=== PATIENT | female | born 1985 | race African-American/Black ===

== ENCOUNTER 2025-06-12 21:22 | Emergency (ER) | payer MEDICAID ==
[~2025-06-12] VITALS: Ht 152.4 cm; Wt 75.0 kg
[2025-06-12 21:49] VITALS: O2SAT 100
[2025-06-13] MEDS: KETOROLAC 15MG/ML VIAL IM ONE (01:53)
[2025-06-13] MEDS: ACETAMINOPHEN 650MG/20.3ML UDC PO ONE (01:53)
[2025-06-13] MEDS ORDERED: GUAI-450 MT (02:53)
[2025-06-13 03:15] VITALS: BP 104/61; PULSE 65; RESP 18; TEMP 36.8; O2SAT 100
[2025-06-13] MEDS ORDERED: AMOX500T2 MT (05:42)
== END 2025-06-13 03:15 | disposition home or self-care (01) ==
LOC: ER 21:22
DX: J02.0 Streptococcal pharyngitis (principal); B97.89 Other viral agents as the cause of diseases classified elsewhere
CPT/HCPCS: 99283; 81025; 87430; 96372; J1885

== ENCOUNTER 2025-07-19 07:46 | Emergency (ER) | payer MEDICAID ==
[~2025-07-19] VITALS: Ht 152.4 cm; Wt 76.0 kg
[~2025-07-19 07:46] MED LIST: AMOX500T2 MT; GUAI-450 MT
[2025-07-19 07:54] VITALS: O2SAT 100
[2025-07-19] MEDS ORDERED: METH-653 MT (08:34)
[2025-07-19] MEDS: IBUPROFEN 600MG TABLET PO ONE (08:41)
[2025-07-19 08:49] VITALS: BP 124/62; PULSE 88; RESP 15; TEMP 36.7; O2SAT 100
== END 2025-07-19 08:50 | disposition home or self-care (01) ==
LOC: ER 07:46
DX: M54.6 Pain in thoracic spine (principal)
CPT/HCPCS: 99283